=== PATIENT | female | born 1930 | race Native Hawaiian/Other Pacific Islander ===

== ENCOUNTER → 2017-08-02 | Outpatient (CLI) | payer MEDICARE, OTHER ==
[~2017-08-02] MED LIST: (None)50 MG PO; ACET325 PO; ALEN70 PO; AMLO10 PO; ANTACID II SIM PO; ASCO500 PO; ASPI325 PO; ASPI81CH PO; ATEN25 PO; Acidophilus1 EAC2 PO; BISA10S PR; CALCA500CH PO; CHOL10002; CLOP75 PO; CRANBERRY250 MG PO; DOXE25 PO; FERR325 PO; GLIP5 PO; GLUTOSE 1537.5 GM PO; HYDRA25 PO; LEVFLO250 PO; LOPE2C PO; LOSA25 PO; LOSA50 PO; METF500 PO; METF850 PO; MULVIT PO; Macrodantin100 MG PO; Milk Of Ma400 MG/5 M PO; OXYACE5T PO; RAYALDEE30 MCG PO; SIMV40 PO; SULTRIDS PO; Zocor20 MG PO
[2017-08-03 13:20] LABS: Source, Urine Clean Catch
[2017-08-03 13:29] LABS: Appearance, Urine Turbid (Clear); Bilirubin, Urine Neg (Neg); Blood, Urine 3+ (Neg); Color, Urine Yellow (P-Yellow); Glucose Qualitative, Urine Neg (Neg); Ketones, Urine Neg (Neg); Leukocyte Esterase, Urine 3+ (Neg); Nitrite, Urine Neg (Neg); Protein, Urine 4+ (Neg); Urobilinogen, Urine NORM (Normal)
[2017-08-03 13:40] LABS: Squamous Epithelial Cells Few /hpf (Few); White Blood Cells, Urine 50-100 /hpf (0-5)
[2017-08-03 13:41] LABS: Amorphous Light (0-Heavy); Bacteria Many /hpf
== END | disposition home or self-care (01) ==
LOC: LAB 19:15
PROVIDERS: Family Medicine
DX: N39.0 Urinary tract infection, site not specified (principal)
CPT/HCPCS: 81001; 87077; 87086; 87186

== ENCOUNTER → 2018-01-15 | Outpatient (CLI) | payer MEDICARE, OTHER | END | disposition home or self-care (01) | LOC: LAB SHORT 14:51 → PLD 14:51 | DX: B07.9 Viral wart, unspecified (principal) | CPT/HCPCS: 88305 ==

== ENCOUNTER 2018-06-08 20:21 | Emergency (ER) | payer MEDICARE, OTHER ==
[~2018-06-08] VITALS: Ht 165.1 cm; Wt 62.1 kg
[~2018-06-08 20:21] MED LIST changes: -FERR325 PO; +FERSU90EL PO
[2018-06-08] MEDS ORDERED: GLIP5 PO (20:31)
[2018-06-08] MEDS ORDERED: FISH OIL 1,0001 EAC1 PO (20:31)
[2018-06-08] MEDS ORDERED: RAYALDEE30 MCG PO (20:32)
== END 2018-06-08 22:40 | disposition home or self-care (01) ==
LOC: ER 20:21
DX: T83.83XA Hemorrhage due to genitourinary prosthetic devices, implants and grafts, initial encounter (principal); Z43.6 Encounter for attention to other artificial openings of urinary tract; Z88.8 Allergy status to other drugs, medicaments and biological substances; Z79.899 Other long term (current) drug therapy; Z79.82 Long term (current) use of aspirin; I12.9 Hypertensive chronic kidney disease with stage 1 through stage 4 chronic kidney disease, or unspecified chronic kidney disease; E11.22 Type 2 diabetes mellitus with diabetic chronic kidney disease; N18.3 Chronic kidney disease, stage 3 (moderate); Z87.891 Personal history of nicotine dependence
CPT/HCPCS: 99283

== ENCOUNTER 2018-06-10 06:00 | Emergency (ER) | payer MEDICARE, OTHER ==
[~2018-06-10] VITALS: Ht 165.1 cm; Wt 62.1 kg
[~2018-06-10 06:00] MED LIST changes: +FISH OIL 1,0001 EAC1 PO
[2018-06-10 06:43] LABS: BASOPHILS ABSOLUTE AUTO 0.04 K/mm3 (0.00-0.23); BASOPHILS PERCENT AUTO 0 % (0-2); EOSINOPHILS ABSOLUTE AUTO 0.59 K/mm3 (0.00-0.68); EOSINOPHILS PERCENT AUTO 5 % (0-6); Hematocrit 26.7 % (33.0-51.0); Hemoglobin 7.9 g/dL (11.5-16.0); IMMATURE GRAN ABSOLUTE AUTO 0.04 K/mm3 (0.00-0.10); IMMATURE GRAN PERCENT AUTO 0 % (0-1); LYMPHOCYTES ABSOLUTE AUTO 1.12 K/mm3 (0.84-5.20); LYMPHOCYTES PERCENT AUTO 10 % (21-46); MONOCYTES ABSOLUTE AUTO 0.76 K/mm3 (0.16-1.47); MONOCYTES PERCENT AUTO 7 % (4-13); Mean Corpuscular HGB 27.6 pg (26.0-34.0); Mean Corpuscular HGB Conc 29.6 g/dL (31.5-36.5); Mean Corpuscular Volume 93 fL (80-100); Mean Platelet Volume 9.5 fL (9.1-12.4); NEUTROPHILS ABSOLUTE AUTO 8.62 K/mm3 (1.96-9.15); NEUTROPHILS PERCENT AUTO 77 % (41-73); Platelet Count 297 K/mm3 (150-400); RDW Standard Deviation 52.9 fL (35.1-46.3); Red Blood Cell Count 2.86 M/mm3 (3.80-5.20); White Blood Cell Count 11.17 K/mm3 (4.00-11.30)
[2018-06-10 06:48] LABS: Source, Urine Catheter
[2018-06-10 06:52] LABS: Appearance, Urine Hazy (Clear); Bilirubin, Urine Neg (Neg); Blood, Urine 5+ (Neg); Color, Urine Yellow (P-Yellow); Glucose Qualitative, Urine Neg (Neg); Ketones, Urine Neg (Neg); Leukocyte Esterase, Urine 3+ (Neg); Nitrite, Urine Neg (Neg); Protein, Urine 3+ (Neg); Urobilinogen, Urine NORM (Normal); pH, Urine 6.5 (5.0-8.0)
[2018-06-10 07:00] LABS: Bun/Creatinine Ratio 18.8 (12.0-20.0); Creatinine, Blood 2.34 mg/dL (0.40-1.00); Potassium, Blood 4.3 mmol/L (3.5-5.5)
[2018-06-10 07:23] LABS: Bacteria Many /hpf; Squamous Epithelial Cells Rare /hpf (Few); White Blood Cells, Urine 50-100 /hpf (0-5)
[2018-06-10] MEDS ORDERED: CEPH500 PO (08:04)
== END 2018-06-10 08:52 | disposition home or self-care (01) ==
LOC: ER 06:00
PROVIDERS: Emergency Medicine
DX: N39.0 Urinary tract infection, site not specified (principal); R41.82 Altered mental status, unspecified; F10.20 Alcohol dependence, uncomplicated; Z88.8 Allergy status to other drugs, medicaments and biological substances; Z79.899 Other long term (current) drug therapy
CPT/HCPCS: 36415; 71045; 80048; 81001; 85025; 87077; 87086; 87186; 96361; 96365; 99284-25; J0696; J7030

== ENCOUNTER → 2018-06-18 | Outpatient (CLI) | payer MEDICARE, OTHER ==
[~2018-06-18] MED LIST changes: +ACIDOPHILUS LA1 EACH PO; +AMOCLA500 PO; +AZIT500 PO; +Bactrim Ds Tab1 EACH PO; +CEFD300 PO; +CEPH500 PO; +DOC250 PO; +Ferrous Sulfat325 M2 PO; +PANT40 PO; +ZINC220 PO
[2018-06-18 14:55] LABS: Bilirubin, Urine Neg (Neg); Blood, Urine 3+ (Neg); Glucose Qualitative, Urine Neg (Neg); Ketones, Urine Neg (Neg); Leukocyte Esterase, Urine Neg (Neg); Nitrite, Urine Neg (Neg); Protein, Urine 3+ (Neg); Urobilinogen, Urine NORM (Normal)
[2018-06-18 15:13] LABS: Appearance, Urine Clear (Clear); Color, Urine Yellow (P-Yellow)
[2018-06-18 15:16] LABS: Bacteria Not Seen /hpf; Squamous Epithelial Cells Not Seen /hpf (Few)
== END | disposition home or self-care (01) ==
LOC: LAB 14:32 → LAB SHORT 14:32
PROVIDERS: Family Medicine
DX: N39.0 Urinary tract infection, site not specified (principal)
CPT/HCPCS: 81001; 87086

== ENCOUNTER 2018-06-19 12:22 | Emergency (ER) | payer MEDICARE, OTHER ==
[~2018-06-19] VITALS: Ht 165.1 cm; Wt 62.1 kg
[~2018-06-19 12:22] MED LIST changes: -ACIDOPHILUS LA1 EACH PO; -AMOCLA500 PO; -AZIT500 PO; -Bactrim Ds Tab1 EACH PO; -CEFD300 PO; -DOC250 PO; -Ferrous Sulfat325 M2 PO; -PANT40 PO; -ZINC220 PO
[2018-06-19 13:37] LABS: BASOPHILS ABSOLUTE AUTO 0.04 K/mm3 (0.00-0.23); BASOPHILS PERCENT AUTO 0 % (0-2); EOSINOPHILS ABSOLUTE AUTO 0.32 K/mm3 (0.00-0.68); EOSINOPHILS PERCENT AUTO 3 % (0-6); Hemoglobin 6.2 g/dL (11.5-16.0); IMMATURE GRAN ABSOLUTE AUTO 0.05 K/mm3 (0.00-0.10); IMMATURE GRAN PERCENT AUTO 0 % (0-1); LYMPHOCYTES PERCENT AUTO 8 % (21-46); MONOCYTES ABSOLUTE AUTO 1.18 K/mm3 (0.16-1.47); MONOCYTES PERCENT AUTO 10 % (4-13); Mean Corpuscular HGB 27.8 pg (26.0-34.0); Mean Corpuscular HGB Conc 29.5 g/dL (31.5-36.5); Mean Corpuscular Volume 94 fL (80-100); Mean Platelet Volume 9.9 fL (9.1-12.4); NEUTROPHILS ABSOLUTE AUTO 9.47 K/mm3 (1.96-9.15); NEUTROPHILS PERCENT AUTO 79 % (41-73); Platelet Count 290 K/mm3 (150-400); RDW Coefficient Variation 15.5 % (11.7-14.2); RDW Standard Deviation 52.1 fL (35.1-46.3); Red Blood Cell Count 2.23 M/mm3 (3.80-5.20); White Blood Cell Count 11.96 K/mm3 (4.00-11.30)
[2018-06-19 13:54] LABS: Albumin, Blood 2.9 g/dL (3.4-5.0); Albumin/Globulin Ratio 0.8 (0.8-1.8); Bun/Creatinine Ratio 14.4 (12.0-20.0); Calcium, Blood 8.3 mg/dL (8.5-10.1); Creatinine, Blood 1.95 mg/dL (0.40-1.00); Globulin, Blood 3.8 g/dL (2.2-4.0); Potassium, Blood 4.4 mmol/L (3.5-5.5); Total Protein, Blood 6.7 g/dL (6.4-8.2)
== END 2018-06-19 17:32 | disposition short-term general hospital (02) ==
LOC: ER 12:22
PROVIDERS: Emergency Medicine
DX: D62 Acute posthemorrhagic anemia (principal); K92.1 Melena; Z88.8 Allergy status to other drugs, medicaments and biological substances; Z79.899 Other long term (current) drug therapy; Z79.82 Long term (current) use of aspirin; I12.9 Hypertensive chronic kidney disease with stage 1 through stage 4 chronic kidney disease, or unspecified chronic kidney disease; N18.3 Chronic kidney disease, stage 3 (moderate); E11.22 Type 2 diabetes mellitus with diabetic chronic kidney disease; Z87.891 Personal history of nicotine dependence
CPT/HCPCS: 36430; 71046; 80053; 82272; 84484; 85025; 86850; 86900; 86901; 86923; 93005; 93010; 96374; 99284-25; C9113; P9016

== ENCOUNTER 2018-06-25 12:23 | Inpatient (IN) | payer MEDICARE, OTHER ==
[~2018-06-25] VITALS: Ht 165.1 cm; Wt 63.5 kg
[2018-06-25 14:23] LABS: Source, Urine Catheter
[2018-06-25 14:27] LABS: Bilirubin, Urine Neg (Neg); Blood, Urine 1+ (Neg); Glucose Qualitative, Urine Neg (Neg); Ketones, Urine Neg (Neg); Leukocyte Esterase, Urine Neg (Neg); Nitrite, Urine Neg (Neg); Protein, Urine 3+ (Neg); Urobilinogen, Urine NORM (Normal)
[2018-06-25 14:29] LABS: Influenza A Negative (NEGATIVE); Influenza B Negative (NEGATIVE)
[2018-06-25 14:49] LABS: Appearance, Urine Clear (Clear); Color, Urine Yellow (P-Yellow)
[2018-06-25 14:50] LABS: Bacteria Mod /hpf; Red Blood Cells, Urine 0-2 /hpf (0-2); Squamous Epithelial Cells Rare /hpf (Few)
[2018-06-25 14:51] LABS: Granular Casts Rare /lpf (0); Yeast/Fungi Urine Rare /hpf
[2018-06-25] MEDS ORDERED: CEFD300 PO (15:02)
[2018-06-25 16:34] LABS: BASOPHILS ABSOLUTE AUTO 0.03 K/mm3 (0.00-0.23); BASOPHILS PERCENT AUTO 0 % (0-2); EOSINOPHILS ABSOLUTE AUTO 0.08 K/mm3 (0.00-0.68); EOSINOPHILS PERCENT AUTO 0 % (0-6); IMMATURE GRAN ABSOLUTE AUTO 0.13 K/mm3 (0.00-0.10); IMMATURE GRAN PERCENT AUTO 1 % (0-1); LYMPHOCYTES ABSOLUTE AUTO 1.06 K/mm3 (0.84-5.20); LYMPHOCYTES PERCENT AUTO 5 % (21-46); MONOCYTES ABSOLUTE AUTO 0.84 K/mm3 (0.16-1.47); MONOCYTES PERCENT AUTO 4 % (4-13); Mean Corpuscular HGB 27.4 pg (26.0-34.0); Mean Corpuscular HGB Conc 30.3 g/dL (31.5-36.5); Mean Corpuscular Volume 90 fL (80-100); Mean Platelet Volume 9.5 fL (9.1-12.4); NEUTROPHILS ABSOLUTE AUTO 17.66 K/mm3 (1.96-9.15); NEUTROPHILS PERCENT AUTO 89 % (41-73); Platelet Count 337 K/mm3 (150-400); RDW Coefficient Variation 15.3 % (11.7-14.2); RDW Standard Deviation 50.6 fL (35.1-46.3); Red Blood Cell Count 3.65 M/mm3 (3.80-5.20)
[2018-06-25 16:40] LABS: Calcium, Ionized (POC) 1.15 mmol/L (1.10-1.46); Chloride (POC) 106 mmol/L (98-108); Glucose (ISTAT POC) 213 mg/dL (70-99); Hemoglobin (POC) 10.2 g/dL (12.0-16.0); Potassium (POC) 4.5 mmol/L (3.5-5.5); Sodium (POC) 139 mmol/L (135-148); Total CO2 (POC) 19 mmol/L (21-32)
[2018-06-25 17:35] LABS: Albumin, Blood 2.8 g/dL (3.4-5.0); Albumin/Globulin Ratio 0.6 (0.8-1.8); Bilirubin, Total 0.6 mg/dL (0.1-1.0); Bun/Creatinine Ratio 12.9 (12.0-20.0); Creatinine, Blood 2.17 mg/dL (0.40-1.00); Globulin, Blood 4.8 g/dL (2.2-4.0); Potassium, Blood 3.8 mmol/L (3.5-5.5); Total Protein, Blood 7.6 g/dL (6.4-8.2)
[2018-06-25 19:32] LABS: Glucose, Blood 119 mg/dL (70-99)
[2018-06-26] MEDS ORDERED: DOC250 PO (03:29)
[2018-06-26] MEDS ORDERED: PANT40 PO (03:30)
[2018-06-26] MEDS ORDERED: ZINC220 PO (03:31)
[2018-06-26] MEDS ORDERED: RAYALDEE30 MCG PO (03:34)
[2018-06-26] MEDS ORDERED: Bactrim Ds Tab1 EACH PO (03:35)
--- NOTE | 2018-06-26 04:50 | NUR ---
SHIFT SUMMARY: PT IS ALERT AND ORIENTED. PT IS CALM AND COOPERATIVE WITH CARE. PT CALLS APPROPRIATELY. PT'S DAUGHTER AT THE BEDSIDE EARLY IN THE SHIFT. PT HAD FEVER, GAVE PRN TYLENOL. PT REPORTED NAUSEA, GAVE PRN ZOFRAN. D5 1/2 NS RUNNING @ 50 ML/HR FOR THE LAST 6 HOURS, BLOOD GLUCOSE DROPPED SLIGHTLY BUT STILL WNL. PT DENIES PAIN AND SOB. PT IS A ONE PERSON ASSIST FOR TRANSFERS AND AMBULATION. BED IN LOW POSITON, CALL LIGHT WITHIN REACH.
[2018-06-26 05:22] LABS: Hematocrit 28.3 % (33.0-51.0); Hemoglobin 8.5 g/dL (11.5-16.0); Mean Corpuscular HGB 27.4 pg (26.0-34.0); Mean Corpuscular Volume 91 fL (80-100); Mean Platelet Volume 9.4 fL (9.1-12.4); Platelet Count 290 K/mm3 (150-400); RDW Coefficient Variation 15.3 % (11.7-14.2); RDW Standard Deviation 51.4 fL (35.1-46.3); White Blood Cell Count 18.22 K/mm3 (4.00-11.30)
[2018-06-26 05:45] LABS: Bun/Creatinine Ratio 11.8 (12.0-20.0); Calcium, Blood 7.2 mg/dL (8.5-10.1); Creatinine, Blood 2.45 mg/dL (0.40-1.00); Potassium, Blood 4.5 mmol/L (3.5-5.5)
--- NOTE | 2018-06-26 14:32 | NUR ---
Visited with patient, reviewed POLST and advance directive. She has both scanned into [employer]. They reflect her current wishes at this time.
--- NOTE | 2018-06-26 18:18 | NUR ---
SHIFT SUMMARY PT HAS HAD NO COMPLAINTS THIS SHIFT. PT'S BLOOD SUGARS HAVE BEEN WNL WITH D5 1/2 NORMAL SALINE INFUSING CONTINUOUSLY. PT STILL DOESN'T HAVE MUCH OF AN APPTITE. SMALL SOFT BOWEL MOVEMENT THIS EVENING. NO ACUTE CHANGES THIS SHIFT. PT UP TO CHAIR FOR DINNER. WILL CONTINUE TO MONITOR AND REPORT TO ONCOMING RN. CALL LIGHT IN REACH.
[2018-06-27 05:00] LABS: BASOPHILS ABSOLUTE AUTO 0.02 K/mm3 (0.00-0.23); BASOPHILS PERCENT AUTO 0 % (0-2); EOSINOPHILS ABSOLUTE AUTO 1.26 K/mm3 (0.00-0.68); EOSINOPHILS PERCENT AUTO 11 % (0-6); Hematocrit 25.4 % (33.0-51.0); Hemoglobin 7.6 g/dL (11.5-16.0); IMMATURE GRAN ABSOLUTE AUTO 0.04 K/mm3 (0.00-0.10); IMMATURE GRAN PERCENT AUTO 0 % (0-1); LYMPHOCYTES ABSOLUTE AUTO 0.81 K/mm3 (0.84-5.20); LYMPHOCYTES PERCENT AUTO 7 % (21-46); MONOCYTES ABSOLUTE AUTO 0.79 K/mm3 (0.16-1.47); MONOCYTES PERCENT AUTO 7 % (4-13); Mean Corpuscular HGB 27.1 pg (26.0-34.0); Mean Corpuscular HGB Conc 29.9 g/dL (31.5-36.5); Mean Corpuscular Volume 91 fL (80-100); Mean Platelet Volume 9.7 fL (9.1-12.4); NEUTROPHILS ABSOLUTE AUTO 8.71 K/mm3 (1.96-9.15); NEUTROPHILS PERCENT AUTO 75 % (41-73); Platelet Count 253 K/mm3 (150-400); RDW Coefficient Variation 15.2 % (11.7-14.2); RDW Standard Deviation 50.6 fL (35.1-46.3); White Blood Cell Count 11.63 K/mm3 (4.00-11.30)
--- NOTE | 2018-06-27 05:22 | NUR ---
SHIFT SUMMARY: PT IS ALERT AND ORIENTED. PT IS CALM AND COOPERATIVE WITH CARE. PT CALLS APPROPRIATELY. PT IS A STANDBY ASSIST WITH THE FWW. PT'S BLOOD SUGARS REMAINED STABLE THROUGHOUT THE SHIFT, FLUIDS RUNNING AT 100 ML/HR. PT SLEPT MUCH OF THE NIGHT WHEN NOT DISTURBED. PT DENIES PAIN, NAUSEA, VOMITING, AND SOB. NO ACUTE CHANGES OR COMPLICATIONS THIS SHIFT. BED IN LOW POSITION, CALL LIGHT SAMANTHA THOMPSON.
[2018-06-27 05:30] LABS: Anion Gap 10 mmol/L (6-16); Blood Urea Nitrogen 30 mg/dL (8-24); CO2, Blood 16 mmol/L (21-32); Calcium, Blood 6.8 mg/dL (8.5-10.1); Chloride, Blood 113 mmol/L (98-108); Glomerular Filtration Rate 21 (60-); Glucose, Blood 138 mg/dL (70-99); Potassium, Blood 4.1 mmol/L (3.5-5.5); Sodium, Blood 139 mmol/L (136-145); Vancomycin, Random 10.8 ug/mL
--- NOTE | 2018-06-27 07:25 | NUR ---
ASSUMED CARE OF PT- BEDSIDE REPORT COMPLETED WITH NIGHT ANJEL LOWRY. PT ALERT AND ORIENTED AND PARTICIPATED IN BEDSIDE REPORT. PER REPORT PT FROM [facility], ADMITTED FOR HYPOGLYCEMIA. MORNING LABS SHOW HGB DOWN TO 7.6, PER REPORT PT HAS BEEN TREATED IN THE PAST WITH BLOOD TRANSFUSIONS FOR ANEMIA. PT BG IS BEING CHECKED Q4 HOURS AT THIS TIME TO ENSURE SAFE RANGE. PT HAS D5 HALF NS RUNNING AT 100ML PER HOUR. POSIBLE PNEUMONIA PER REPORT, PT ON RA AT THIS TIME. PT FAMILY ARRIVED AFTER REPORT.
--- NOTE | 2018-06-27 07:39 | NUR ---
CALLED PHARMACY- FELICITY VERIFIED IV VANCO IS COMPATIBLE TO PB WITH D5 1/2 NS
--- NOTE | 2018-06-27 09:47 | NUR ---
SPOKE TO DR SAM- PLAN IS TO ENSURE PT BG IS STABLE WITHOUT IVF WILL CTM Q4 AT THIS TIME.
[2018-06-27] MEDS ORDERED: AZIT500 PO (14:58)
[2018-06-27] MEDS ORDERED: AMOCLA500 PO (14:59)
[2018-06-27] MEDS ORDERED: ACIDOPHILUS LA1 EACH PO (15:01)
--- NOTE | 2018-06-27 15:45 | NUR ---
DISCHARGE NOTE- PT DISCHARGED BACK TO [facility], MEDS FAXED TO THE FACILITY PER PT REQUEST. PT WAS GIVEN VERBAL AND WRITTEN DISCHARGE INSTRUCTIONS AND ACKNOWLEDGED UNDERSTANDING OF THEM.PG WAS DC'D AT THE TIME OF DISCHARGE, PT TAKEN BY W/C TRANSPORT BACK TO [facility], SHE CONTACTED HER FAMILY.
== END 2018-06-27 15:43 | disposition home or self-care (01) | DRG 637 ==
LOC: ER 12:23 → MEDS 12:24 → ER 18:17 → MEDS 18:36 → ENPENDDIS 06-27 15:02 → MEDS 06-27 15:09
PROVIDERS: Emergency Medicine; Internal Medicine; Nurse Practitioner Acute Care; ADMIT Internal Medicine
DX: E11.649 Type 2 diabetes mellitus with hypoglycemia without coma (principal); G93.41 Metabolic encephalopathy; J18.9 Pneumonia, unspecified organism; T83.518A Infection and inflammatory reaction due to other urinary catheter, initial encounter; E11.22 Type 2 diabetes mellitus with diabetic chronic kidney disease; Z85.51 Personal history of malignant neoplasm of bladder; M85.80 Other specified disorders of bone density and structure, unspecified site; I12.9 Hypertensive chronic kidney disease with stage 1 through stage 4 chronic kidney disease, or unspecified chronic kidney disease; Z79.82 Long term (current) use of aspirin; N25.81 Secondary hyperparathyroidism of renal origin; N18.4 Chronic kidney disease, stage 4 (severe); M81.0 Age-related osteoporosis without current pathological fracture; Z95.0 Presence of cardiac pacemaker; Z86.73 Personal history of transient ischemic attack (TIA), and cerebral infarction without residual deficits; E78.5 Hyperlipidemia, unspecified; Z87.891 Personal history of nicotine dependence; Z79.84 Long term (current) use of oral hypoglycemic drugs
CPT/HCPCS: 36415; 71046; 80047; 80048; 80053; 80202; 81001; 82947; 83036; 83525; 83527; 84145; 84681; 85014; 85025; 85027; 85730; 87077; 87086; 87186; 87449; 87804; 96361; 96365; 96366; 96367; 96375; 97116; 97162; 97530; 99284-25; C1751; G0378; J0696; J2405; J3370; J7042; J7050

== ENCOUNTER 2018-07-08 00:04 | Observation (INO) | payer MEDICARE, OTHER ==
[~2018-07-08] VITALS: Ht 152.4 cm; Wt 57.7 kg
[~2018-07-08 00:04] MED LIST changes: +ACIDOPHILUS LA1 EACH PO; +AMOCLA500 PO; +AZIT500 PO; +Bactrim Ds Tab1 EACH PO; +CEFD300 PO; +DOC250 PO; +PANT40 PO; +ZINC220 PO
[2018-07-08 00:41] LABS: BASOPHILS ABSOLUTE AUTO 0.07 K/mm3 (0.00-0.23); BASOPHILS PERCENT AUTO 0 % (0-2); EOSINOPHILS ABSOLUTE AUTO 0.31 K/mm3 (0.00-0.68); EOSINOPHILS PERCENT AUTO 2 % (0-6); Hematocrit 25.2 % (33.0-51.0); Hemoglobin 7.2 g/dL (11.5-16.0); IMMATURE GRAN ABSOLUTE AUTO 0.15 K/mm3 (0.00-0.10); IMMATURE GRAN PERCENT AUTO 1 % (0-1); LYMPHOCYTES PERCENT AUTO 9 % (21-46); MONOCYTES ABSOLUTE AUTO 0.67 K/mm3 (0.16-1.47); MONOCYTES PERCENT AUTO 4 % (4-13); Mean Corpuscular HGB 27.1 pg (26.0-34.0); Mean Corpuscular HGB Conc 28.6 g/dL (31.5-36.5); Mean Platelet Volume 9.6 fL (9.1-12.4); NEUTROPHILS ABSOLUTE AUTO 13.69 K/mm3 (1.96-9.15); NEUTROPHILS PERCENT AUTO 84 % (41-73); NRBC Auto 0.6 /100 WBC (0.0-0.2); Platelet Count 382 K/mm3 (150-400); RDW Coefficient Variation 17.8 % (11.7-14.2); Red Blood Cell Count 2.66 M/mm3 (3.80-5.20); White Blood Cell Count 16.39 K/mm3 (4.00-11.30)
[2018-07-08 00:52] LABS: Mean Corpuscular Volume 95 fL (80-100)
[2018-07-08 01:08] LABS: Source, Urine Clean Catch
[2018-07-08 01:20] LABS: Bilirubin, Urine Neg (Neg); Blood, Urine 2+ (Neg); Glucose Qualitative, Urine Neg (Neg); Ketones, Urine Neg (Neg); Leukocyte Esterase, Urine Neg (Neg); Nitrite, Urine Neg (Neg); Protein, Urine 3+ (Neg); Urobilinogen, Urine NORM (Normal); pH, Urine 6.5 (5.0-8.0)
[2018-07-08 01:20] LABS: Albumin, Blood 3.1 g/dL (3.4-5.0); Albumin/Globulin Ratio 0.7 (0.8-1.8); Bilirubin, Total 0.7 mg/dL (0.1-1.0); Bun/Creatinine Ratio 12.6 (12.0-20.0); Calcium, Blood 9.2 mg/dL (8.5-10.1); Creatinine, Blood 1.98 mg/dL (0.40-1.00); Globulin, Blood 4.3 g/dL (2.2-4.0); Potassium, Blood 4.3 mmol/L (3.5-5.5); Total Protein, Blood 7.4 g/dL (6.4-8.2)
[2018-07-08 01:28] LABS: Appearance, Urine Clear (Clear); Color, Urine Yellow (P-Yellow)
[2018-07-08 01:31] LABS: Bacteria Few /hpf; Red Blood Cells, Urine 0-2 /hpf (0-2); Squamous Epithelial Cells Rare /hpf (Few)
[2018-07-08 04:49] LABS: Percent Saturation 12.5 % (15.0-50.0)
[2018-07-08 04:52] LABS: IMMATURE RETIC FRACTION 43.8 % (2.3-16.0); RETIC HGB EQUIVALENT 25.5 pg (28.20-36.60); RETICULOCYTE ABSOLUTE 0.1981 M/mm3 (0.0200-0.1100); RETICULOCYTE COUNT PERCENT 7.42 % (0.50-2.50)
[2018-07-08 05:34] LABS: BASOPHILS ABSOLUTE AUTO 0.09 K/mm3 (0.00-0.23); BASOPHILS PERCENT AUTO 1 % (0-2); EOSINOPHILS ABSOLUTE AUTO 0.13 K/mm3 (0.00-0.68); EOSINOPHILS PERCENT AUTO 1 % (0-6); Hematocrit 23.7 % (33.0-51.0); Hemoglobin 6.8 g/dL (11.5-16.0); IMMATURE GRAN ABSOLUTE AUTO 0.14 K/mm3 (0.00-0.10); IMMATURE GRAN PERCENT AUTO 1 % (0-1); LYMPHOCYTES ABSOLUTE AUTO 1.02 K/mm3 (0.84-5.20); LYMPHOCYTES PERCENT AUTO 6 % (21-46); MONOCYTES ABSOLUTE AUTO 0.47 K/mm3 (0.16-1.47); MONOCYTES PERCENT AUTO 3 % (4-13); Mean Corpuscular HGB 26.5 pg (26.0-34.0); Mean Corpuscular HGB Conc 28.7 g/dL (31.5-36.5); Mean Corpuscular Volume 92 fL (80-100); Mean Platelet Volume 9.9 fL (9.1-12.4); NEUTROPHILS ABSOLUTE AUTO 15.26 K/mm3 (1.96-9.15); NEUTROPHILS PERCENT AUTO 89 % (41-73); NRBC ABSOLUTE 0.09 K/mm3 (0.00-0.02); NRBC Auto 0.5 /100 WBC (0.0-0.2); Platelet Count 374 K/mm3 (150-400); RDW Coefficient Variation 17.8 % (11.7-14.2); RDW Standard Deviation 57.1 fL (35.1-46.3); Red Blood Cell Count 2.57 M/mm3 (3.80-5.20); White Blood Cell Count 17.11 K/mm3 (4.00-11.30)
--- NOTE | 2018-07-08 07:59 | NUR ---
NOC SHIFT SUMMARY THIS PATIENT WAS ADMITTED DURING THE NIGHT FOR OBS. SHE IS PLEASENT AND COOPERATIVE WITH CARE. SHE WILL ANSWERE QUESTIONS BUT DOES NOT OPEN HER EYES UNLESS ASKED. ISOLATION PRECAUTIONS DUE TO CONCERNS OF CDIFF. ONE UNIT OF PRBC'S WAS STARTED AND PT HAS TOERATED PROCEEDURE WELL. LUNGS CLEAR THROUGOUT. REPORT GIVEN TO ONCOMING NURSE.
--- NOTE | 2018-07-08 17:50 | NUR ---
SHIFT SUMMARY PT RECEIVED 2 UNITS OF BLOOD TODAY. TOLERATED WITH NO PROBLEM. VSS. 1 PERSON ASSIST USING FWW. TOOK A SHOWER TODAY AND TOLERATED WITH NO PROBLEM. REPORTS SHE HASN'T HAD AN APPETITE IN SEVERAL WEEKS.
[2018-07-08 18:42] LABS: Adenovirus F 40/41 Not Detected (NOT DETECT); Astrovirus Not Detected (NOT DETECT); Campylobacter Sp Not Detected (NOT DETECT); Cryptosporidium Not Detected (NOT DETECT); Cyclospora Cayetanensis Not Detected (NOT DETECT); E. Coli O157 Not Detected (NOT DETECT); Entamoeba Histolytica Not Detected (NOT DETECT); Enteroaggregative E. coli-EAEC Not Detected (NOT DETECT); Enteropathogenic E. coli-EPEC Not Detected (NOT DETECT); Enterotoxigenic E. coli-ETEC Not Detected (NOT DETECT); Giardia Lamblia Not Detected (NOT DETECT); Norovirus GI/GII Not Detected (NOT DETECT); Plesiomonas Shigelloides Not Detected (NOT DETECT); Rotavirus A Not Detected (NOT DETECT); Salmonella Sp Not Detected (NOT DETECT); Sapovirus Not Detected (NOT DETECT); Shiga Toxin-prod E. coli-STEC Not Detected (NOT DETECT); Shigella/Enteroin E. coli-EIEC Not Detected (NOT DETECT); Vibrio Cholerae Not Detected (NOT DETECT); Vibrio Sp Not Detected (NOT DETECT); Yersinia Enterocolitica Not Detected (NOT DETECT)
--- NOTE | 2018-07-08 19:29 | NUR ---
DR SHIELDS IN TO SEE PT AT START OF SHIFT. PER DR SHIELDS, "PT WILL HAVE UPPER ENDOSCOPY TOMORROW". WILL MAKE PT NPO AFTER MIDNIGHT IN PREP FOR PROCEDURE.
[2018-07-08 19:38] LABS: Hematocrit 32.8 % (33.0-51.0); Hemoglobin 10.2 g/dL (11.5-16.0)
--- NOTE | 2018-07-09 04:21 | NUR ---
NOC SHIFT SUMMARY THIS PT APPEARS IMPROVED SINCE LAST NIGHT WHEN SHE WAS ADMITTED. SHE IS AAOX4 RESP ARE EVEN AND UNLABORED. SHE NOW OPENS HER EYES AND LOOKS AT YOU WHEN SPEAKING. HER DAUGHTER WAS IN EARLIER THIS EVENING VISITING WITH HER. SHE IS MOVING MUCH MORE EASILY IN BED AND ROLLED OVER ON HER OWN WHEN ASKED DURING BREATH SOUND ASSESMENT. SHE HAS BEEN SLEEPING RESTFULLY THIS NIGHT. WILL CONTINUE TO MONITOR.
[2018-07-09 04:56] LABS: BASOPHILS ABSOLUTE AUTO 0.06 K/mm3 (0.00-0.23); BASOPHILS PERCENT AUTO 0 % (0-2); EOSINOPHILS ABSOLUTE AUTO 0.28 K/mm3 (0.00-0.68); EOSINOPHILS PERCENT AUTO 2 % (0-6); Hematocrit 33.2 % (33.0-51.0); Hemoglobin 10.3 g/dL (11.5-16.0); IMMATURE GRAN ABSOLUTE AUTO 0.09 K/mm3 (0.00-0.10); IMMATURE GRAN PERCENT AUTO 1 % (0-1); LYMPHOCYTES ABSOLUTE AUTO 1.11 K/mm3 (0.84-5.20); LYMPHOCYTES PERCENT AUTO 7 % (21-46); MONOCYTES ABSOLUTE AUTO 0.87 K/mm3 (0.16-1.47); MONOCYTES PERCENT AUTO 6 % (4-13); Mean Corpuscular HGB 26.9 pg (26.0-34.0); Mean Platelet Volume 9.9 fL (9.1-12.4); NEUTROPHILS ABSOLUTE AUTO 13.55 K/mm3 (1.96-9.15); NEUTROPHILS PERCENT AUTO 85 % (41-73); NRBC ABSOLUTE 0.05 K/mm3 (0.00-0.02); NRBC Auto 0.3 /100 WBC (0.0-0.2); Platelet Count 347 K/mm3 (150-400); RDW Standard Deviation 51.9 fL (35.1-46.3); Red Blood Cell Count 3.83 M/mm3 (3.80-5.20); White Blood Cell Count 15.96 K/mm3 (4.00-11.30)
[2018-07-09 04:57] LABS: Mean Corpuscular Volume 87 fL (80-100)
[2018-07-09 05:20] LABS: Bun/Creatinine Ratio 13.5 (12.0-20.0); Creatinine, Blood 1.55 mg/dL (0.40-1.00); Potassium, Blood 4.5 mmol/L (3.5-5.5)
--- NOTE | 2018-07-09 10:02 | NUR ---
FIELD START PT REFUSED STANDARD FIELD START IV CHANGE. PT STATED SHE WANTS TO KEEP IT UNTIL IT NO LONGER WORKS. DAY SURGERY NOTIFIED & STATED IT WOULD BE FINE LONG THE IV FLUSHES.
--- NOTE | 2018-07-09 15:09 | NUR ---
07/09/18 1509 Willis Syed PATIENT DETERMINED TO BE ASA APPROPRIATE FOR PROPOFOL SEDATION PRIOR TO START OF PROCEDURE BY . 3-LEAD EKG REVIEWED WITH PHYSICIAN PRIOR TO START OF PROCEDURE.PATIENT CONFIRMS NPO STATUS AND AGREES WITH SCHEDULED PROCEDURE.History, Chart, Medications and Allergies reviewed before start of procedure.MONITOR INTACT WITH CONTINUOUS PULSE OXIMETRY AND INTERMITTENT BP.O2 VIA N/C INTACT THROUGHOUT SEDATION/PROCEDURE.Bite Block Placed
--- NOTE | 2018-07-09 16:57 | NUR ---
SHIFT SUMMARY PT RECIEVED UPPER ENDO THIS AFTERNOON. NOTHING FOUND IN PROCEDURE. PT CONTINUES TO HAVE DARK, LOOSE STOOL. NO OTHER CHANGES IN ASSESSMENT AT THIS TIME. VSS. POST PROCEDURE VITALS CONTINUE TO BE TAKEN. WILL CONTINUE TO MONITOR UNTIL TURNOVER IS COMPLETE.
[2018-07-09 17:31] LABS: Hematocrit 35.1 % (33.0-51.0); Hemoglobin 10.7 g/dL (11.5-16.0)
--- NOTE | 2018-07-09 18:56 | NUR ---
Mrs. Harris was pleasantly dismissive. She is awaiting a proceedure to determine POC. No concerns presented. Prayer offered at conclusion of visit. I will remain available.
[2018-07-10 04:55] LABS: BASOPHILS ABSOLUTE AUTO 0.07 K/mm3 (0.00-0.23); BASOPHILS PERCENT AUTO 1 % (0-2); EOSINOPHILS ABSOLUTE AUTO 0.39 K/mm3 (0.00-0.68); EOSINOPHILS PERCENT AUTO 4 % (0-6); Hematocrit 33.3 % (33.0-51.0); Hemoglobin 10.2 g/dL (11.5-16.0); IMMATURE GRAN ABSOLUTE AUTO 0.02 K/mm3 (0.00-0.10); IMMATURE GRAN PERCENT AUTO 0 % (0-1); LYMPHOCYTES ABSOLUTE AUTO 0.88 K/mm3 (0.84-5.20); LYMPHOCYTES PERCENT AUTO 8 % (21-46); MONOCYTES PERCENT AUTO 8 % (4-13); Mean Corpuscular HGB Conc 30.6 g/dL (31.5-36.5); Mean Corpuscular Volume 88 fL (80-100); Mean Platelet Volume 9.5 fL (9.1-12.4); NEUTROPHILS ABSOLUTE AUTO 8.52 K/mm3 (1.96-9.15); NEUTROPHILS PERCENT AUTO 80 % (41-73); Platelet Count 309 K/mm3 (150-400); RDW Coefficient Variation 17.9 % (11.7-14.2); Red Blood Cell Count 3.78 M/mm3 (3.80-5.20); White Blood Cell Count 10.68 K/mm3 (4.00-11.30)
--- NOTE | 2018-07-10 05:04 | NUR ---
SHIFT SUMMARY PT SLEPT WELL DURING THE NIGHT, UP TO BATHROOM X1. PT REQUESTING A MEPILEX BE PLACED ON RIGHT BUTTCHEEK DUE TO A SORE SHE BELIEVES IS FROM THE PULL UPS. SMALL MEPILEX PLACED OVER AREA. NO ACUTE CHANGES NOTED, WILL CONTINUE TO MONITOR.
[2018-07-10 05:12] LABS: Albumin, Blood 2.7 g/dL (3.4-5.0); Anion Gap 8 mmol/L (6-16); Blood Urea Nitrogen 21 mg/dL (8-24); Bun/Creatinine Ratio 12.8 (12.0-20.0); CO2, Blood 22 mmol/L (21-32); Calcium, Blood 8.7 mg/dL (8.5-10.1); Chloride, Blood 114 mmol/L (98-108); Creatinine, Blood 1.64 mg/dL (0.40-1.00); Glomerular Filtration Rate 31 (60-); Glucose, Blood 121 mg/dL (70-99); Potassium, Blood 4.4 mmol/L (3.5-5.5); Sodium, Blood 144 mmol/L (136-145)
--- NOTE | 2018-07-10 16:21 | NUR ---
Pt is up and ambulating in room independently. She is alert, oriented X4 and pleasant. She reports that staff was just present in the room and states that she is able to go. No discharge has been placed as of yet. Pt is gathering her things to go home, she denies pain, anxiety, shortness of breath. Pt does have an advanced directive and a POLST on file in [employer]. She does not wish to make changes and finds everything appropriate. Will remain avialable.
[2018-07-10] MEDS ORDERED: Ferrous Sulfat325 M2 PO (17:17)
--- NOTE | 2018-07-10 17:40 | NUR ---
DISCHARGE SUMMARY PT DISCHARGED TO [facility]. PT TAKEN THERE BY DAUGHTER, BORIS. PT LEFT ROOM VIA WHEELCHAIR WITH SUPERVISOR SIGN SHOP ESCORT AT 1740. PT EDUCATED ON GI BLEED, MEDICATIONS AND TO FOLLOW UP WITH PCP AND DR SHIELDS. IV DC'D AND BELONGINGS RETURNED. PT DID NOT GET HER PM DOSE OF PROTONIX DUE TO WANTING IV OUT, EDUCATED ON THE IMPORTANCE OF TAKING PROTONIX. PT EDUCATED ON MONITORING OF BLOOD IN STOOL.
--- NOTE | 2018-07-15 11:05 | NUR ---
LATE ENTRY-ORDER CORRECTION FULLL LIQUID ORDER REORDERED UNDER CORRECT PHYSICIAN FOR 07/09/18.
== END 2018-07-10 17:43 | disposition home or self-care (01) ==
LOC: ER 00:04 → MEDS 00:05 → ER 02:22 → MEDS 02:22 → ENPENDDIS 07-10 16:03 → MEDS 07-10 17:43
PROVIDERS: Emergency Medicine; Family Medicine; Internal Medicine; Internal Medicine Gastroenterology; ADMIT Hospitalist
PROC: 0DJ08ZZ Inspection of Upper Intestinal Tract, Via Natural or Artificial Opening Endoscopic (ICD-10-PCS; principal; 2018-07-09 14:30)
DX: K92.1 Melena (principal); D50.0 Iron deficiency anemia secondary to blood loss (chronic); E11.22 Type 2 diabetes mellitus with diabetic chronic kidney disease; I12.9 Hypertensive chronic kidney disease with stage 1 through stage 4 chronic kidney disease, or unspecified chronic kidney disease; N18.4 Chronic kidney disease, stage 4 (severe); M81.0 Age-related osteoporosis without current pathological fracture; E78.5 Hyperlipidemia, unspecified; Z95.0 Presence of cardiac pacemaker; Z86.73 Personal history of transient ischemic attack (TIA), and cerebral infarction without residual deficits; Z85.51 Personal history of malignant neoplasm of bladder; Z90.6 Acquired absence of other parts of urinary tract; Z90.710 Acquired absence of both cervix and uterus; Z87.891 Personal history of nicotine dependence; Z88.8 Allergy status to other drugs, medicaments and biological substances; Z79.899 Other long term (current) drug therapy
CPT/HCPCS: 36415; 36430; 71046; 80048; 80053; 80069; 81001; 82728; 82947; 83540; 83550; 85014; 85018; 85025; 85045; 86850; 86900; 86901; 86923; 87086; 87507; 96374; 96376; 99285-25; C9113; G0378; J7120; P9016

== ENCOUNTER 2018-08-31 20:29 | Inpatient (IN) | payer MEDICARE, OTHER ==
[~2018-08-31] VITALS: Ht 165.1 cm; Wt 59.8 kg
[~2018-08-31 20:29] MED LIST changes: +Aspir 8181 MG PO; +BIOTIN5 MG PO; +ELIQUIS2.5 MG PO; +ELIQUIS5 MG PO; +Ferrous Sulfat325 M2 PO; +GABA100 PO
[2018-08-31 21:09] LABS: BASOPHILS ABSOLUTE AUTO 0.07 K/mm3 (0.00-0.23); BASOPHILS PERCENT AUTO 0 % (0-2); EOSINOPHILS ABSOLUTE AUTO 0.38 K/mm3 (0.00-0.68); EOSINOPHILS PERCENT AUTO 2 % (0-6); Hematocrit 21.1 % (33.0-51.0); IMMATURE GRAN ABSOLUTE AUTO 0.11 K/mm3 (0.00-0.10); IMMATURE GRAN PERCENT AUTO 1 % (0-1); LYMPHOCYTES ABSOLUTE AUTO 1.46 K/mm3 (0.84-5.20); LYMPHOCYTES PERCENT AUTO 8 % (21-46); MONOCYTES ABSOLUTE AUTO 1.02 K/mm3 (0.16-1.47); MONOCYTES PERCENT AUTO 5 % (4-13); Mean Corpuscular HGB 25.3 pg (26.0-34.0); Mean Corpuscular HGB Conc 28.4 g/dL (31.5-36.5); Mean Corpuscular Volume 89 fL (80-100); Mean Platelet Volume 9.8 fL (9.1-12.4); NEUTROPHILS ABSOLUTE AUTO 15.94 K/mm3 (1.96-9.15); NEUTROPHILS PERCENT AUTO 84 % (41-73); Platelet Count 441 K/mm3 (150-400); RDW Coefficient Variation 17.5 % (11.7-14.2); RDW Standard Deviation 55.8 fL (35.1-46.3); Red Blood Cell Count 2.37 M/mm3 (3.80-5.20); White Blood Cell Count 18.98 K/mm3 (4.00-11.30)
[2018-08-31 21:23] LABS: Alanine Aminotransfer (ALT/SGP 10 U/L (12-78); Albumin/Globulin Ratio 0.5 (0.8-1.8); Alk Phos 58 U/L (50-136); Anion Gap 9 mmol/L (6-16); Aspartate Aminotrans (AST/SGOT 14 U/L (12-37); Bilirubin, Total 0.3 mg/dL (0.1-1.0); Blood Urea Nitrogen 46 mg/dL (8-24); Bun/Creatinine Ratio 31.7 (12.0-20.0); CO2, Blood 20 mmol/L (21-32); Calcium, Blood 8.3 mg/dL (8.5-10.1); Chloride, Blood 111 mmol/L (98-108); Creatinine, Blood 1.45 mg/dL (0.40-1.00); Globulin, Blood 4.1 g/dL (2.2-4.0); Glomerular Filtration Rate 36 (60-); Glucose, Blood 184 mg/dL (70-99); Potassium, Blood 4.5 mmol/L (3.5-5.5); Sodium, Blood 140 mmol/L (136-145); Total Protein, Blood 6.1 g/dL (6.4-8.2); Troponin I <0.015 ng/mL (0.000-0.040)
[2018-08-31 22:41] LABS: International Normalized Ratio 1.15
[2018-09-01 08:08] LABS: Hematocrit 28.5 % (33.0-51.0); Hemoglobin 9.1 g/dL (11.5-16.0); Mean Corpuscular HGB 28.2 pg (26.0-34.0); Mean Corpuscular HGB Conc 31.9 g/dL (31.5-36.5); Mean Corpuscular Volume 88 fL (80-100); Mean Platelet Volume 9.8 fL (9.1-12.4); Platelet Count 331 K/mm3 (150-400); RDW Coefficient Variation 15.6 % (11.7-14.2); RDW Standard Deviation 49.8 fL (35.1-46.3); Red Blood Cell Count 3.23 M/mm3 (3.80-5.20); White Blood Cell Count 15.46 K/mm3 (4.00-11.30)
[2018-09-01 08:20] LABS: Hematocrit 28.2 % (33.0-51.0)
[2018-09-01 08:59] LABS: Albumin, Blood 1.7 g/dL (3.4-5.0); Albumin/Globulin Ratio 0.4 (0.8-1.8); Bun/Creatinine Ratio 34.5 (12.0-20.0); Calcium, Blood 8.1 mg/dL (8.5-10.1); Creatinine, Blood 1.39 mg/dL (0.40-1.00); Globulin, Blood 3.8 g/dL (2.2-4.0); Potassium, Blood 4.4 mmol/L (3.5-5.5); Total Protein, Blood 5.5 g/dL (6.4-8.2)
[2018-09-01 10:39] LABS: Source, Urine Catheter
[2018-09-01 10:44] LABS: Appearance, Urine Hazy (Clear); Bilirubin, Urine Neg (Neg); Blood, Urine 3+ (Neg); Color, Urine Yellow (P-Yellow); Glucose Qualitative, Urine Neg (Neg); Ketones, Urine Neg (Neg); Leukocyte Esterase, Urine 2+ (Neg); Nitrite, Urine Neg (Neg); Protein, Urine 1+ (Neg); Urobilinogen, Urine NORM (Normal)
[2018-09-01 10:58] LABS: Bacteria Many /hpf; Granular Casts 0-2 /lpf (0); Squamous Epithelial Cells Rare /hpf (Few)
[2018-09-01 19:42] LABS: Influenza A Negative (NEGATIVE); Influenza B Negative (NEGATIVE)
--- NOTE | 2018-09-01 20:14 | NUR ---
SHIFT SUMMARY- PT HAD A GI CONSULT THIS EVENING, GOLYTLY STARTED PER EMAR. PT ALERT AND ORIENTED AND FAMILY IS AT THE BEDSIDE. PT HAS BILATERAL DVTS AND IS ON LOVENOX FOR THIS, SINCE XERALTO WAS STOPPED D/T GI BLEED. PT PLEASENT AND COOPERATIVE WITH CARE. PER FAMILY THEY SPOKE TO GI DOCTOR, IF PT IS UNABLE TO DO THE BOWEL PREP THEY WANT TO DECLINE TREATMENT AND EXPLORE ANOTHER OPTION. PT IS A DNR, BRACLET NOT IN PLACE AT THIS TIME ON SHOULD BE PLACED THIS EVENING, NIGHT RN AWARE. PT HAS NO CURRENT C/O PAIN, MEDICATED ONCE THIS SHIFT FOR PAIN WITH TYLENOL, PAIN IN THE LEFT THIGH, LIKELY R/T DVT.
--- NOTE | 2018-09-02 05:31 | NUR ---
SHIFT SUMMARY [place] [facility] [place] GOLYT[place] AND STOOL BECOMING LIQUID VERY DARK BROWN. UROSTOMY DRAINING. NPO AFTER MIDNIGHT. SHE WAS ABLE TO DOZE ON AND OFF T/O NIGHT. USING CALL LIGHT APPROPRIATELY.
[2018-09-02 05:39] LABS: BASOPHILS ABSOLUTE AUTO 0.09 K/mm3 (0.00-0.23); BASOPHILS PERCENT AUTO 1 % (0-2); EOSINOPHILS ABSOLUTE AUTO 0.68 K/mm3 (0.00-0.68); EOSINOPHILS PERCENT AUTO 4 % (0-6); Hematocrit 27.5 % (33.0-51.0); Hemoglobin 8.4 g/dL (11.5-16.0); IMMATURE GRAN ABSOLUTE AUTO 0.14 K/mm3 (0.00-0.10); IMMATURE GRAN PERCENT AUTO 1 % (0-1); LYMPHOCYTES ABSOLUTE AUTO 1.18 K/mm3 (0.84-5.20); LYMPHOCYTES PERCENT AUTO 6 % (21-46); MONOCYTES ABSOLUTE AUTO 1.21 K/mm3 (0.16-1.47); MONOCYTES PERCENT AUTO 6 % (4-13); Mean Corpuscular HGB 28.2 pg (26.0-34.0); Mean Corpuscular HGB Conc 30.5 g/dL (31.5-36.5); Mean Platelet Volume 9.9 fL (9.1-12.4); NEUTROPHILS ABSOLUTE AUTO 15.62 K/mm3 (1.96-9.15); NEUTROPHILS PERCENT AUTO 83 % (41-73); NRBC ABSOLUTE 0.02 K/mm3 (0.00-0.02); NRBC Auto 0.1 /100 WBC (0.0-0.2); Platelet Count 350 K/mm3 (150-400); RDW Coefficient Variation 16.7 % (11.7-14.2); RDW Standard Deviation 55.4 fL (35.1-46.3); Red Blood Cell Count 2.98 M/mm3 (3.80-5.20); White Blood Cell Count 18.92 K/mm3 (4.00-11.30)
[2018-09-02 05:41] LABS: Mean Corpuscular Volume 92 fL (80-100)
--- NOTE | 2018-09-02 15:55 | NUR ---
09/02/18 1555 Edil Mckeon Patient to ENDO 1History, Chart, Medications and Allergies reviewed before start of procedure.MONITOR INTACT WITH CONTINUOUS PULSE OXIMETRY AND INTERMITTENT BP.O2 VIA N/C INTACT THROUGHOUT SEDATION/PROCEDURE.See Anesthesia record.
--- NOTE | 2018-09-02 17:33 | NUR ---
PT AOX4 AND COOPERATIVE OF ALL CARE. PT STARTED SHIFT NPO FOR LOWER AND UPPER SCOPE. PT WAS A ONE PERSON TRANSFER TO [facility]. PT WAS ABLE TO DRINK MOST OF THE BOWEL PREP, BUT HAD A HARD TIME COMPLETING THE WHOLE JUG. PT WAS ABLE TO HAVE SCOPES DONE AND IS RESTING IN ROOM AT THIS TIME WITH FAMILY AT BEDSIDE. NO DISTRESS AT THIS TIME.
[2018-09-03 05:31] LABS: BASOPHILS ABSOLUTE AUTO 0.04 K/mm3 (0.00-0.23); BASOPHILS PERCENT AUTO 0 % (0-2); EOSINOPHILS PERCENT AUTO 2 % (0-6); Hematocrit 24.8 % (33.0-51.0); Hemoglobin 7.6 g/dL (11.5-16.0); IMMATURE GRAN ABSOLUTE AUTO 0.08 K/mm3 (0.00-0.10); IMMATURE GRAN PERCENT AUTO 1 % (0-1); LYMPHOCYTES ABSOLUTE AUTO 0.96 K/mm3 (0.84-5.20); LYMPHOCYTES PERCENT AUTO 6 % (21-46); MONOCYTES ABSOLUTE AUTO 0.95 K/mm3 (0.16-1.47); MONOCYTES PERCENT AUTO 6 % (4-13); Mean Corpuscular HGB 27.4 pg (26.0-34.0); Mean Corpuscular HGB Conc 30.6 g/dL (31.5-36.5); Mean Corpuscular Volume 90 fL (80-100); Mean Platelet Volume 9.7 fL (9.1-12.4); NEUTROPHILS ABSOLUTE AUTO 14.07 K/mm3 (1.96-9.15); NEUTROPHILS PERCENT AUTO 85 % (41-73); NRBC ABSOLUTE 0.02 K/mm3 (0.00-0.02); NRBC Auto 0.1 /100 WBC (0.0-0.2); Platelet Count 364 K/mm3 (150-400); RDW Coefficient Variation 17.2 % (11.7-14.2); Red Blood Cell Count 2.77 M/mm3 (3.80-5.20)
--- NOTE | 2018-09-03 07:00 | NUR ---
a+o, saline locked, rm air, call light in reach, walking rounds completed with returning day staff, no indication of bleeding
[2018-09-03 15:25] LABS: BASOPHILS ABSOLUTE AUTO 0.07 K/mm3 (0.00-0.23); BASOPHILS PERCENT AUTO 0 % (0-2); EOSINOPHILS PERCENT AUTO 2 % (0-6); Hematocrit 24.3 % (33.0-51.0); Hemoglobin 7.5 g/dL (11.5-16.0); IMMATURE GRAN PERCENT AUTO 1 % (0-1); LYMPHOCYTES ABSOLUTE AUTO 1.17 K/mm3 (0.84-5.20); LYMPHOCYTES PERCENT AUTO 6 % (21-46); MONOCYTES ABSOLUTE AUTO 1.17 K/mm3 (0.16-1.47); MONOCYTES PERCENT AUTO 6 % (4-13); Mean Corpuscular HGB 28.3 pg (26.0-34.0); Mean Corpuscular HGB Conc 30.9 g/dL (31.5-36.5); Mean Corpuscular Volume 92 fL (80-100); Mean Platelet Volume 9.1 fL (9.1-12.4); NEUTROPHILS ABSOLUTE AUTO 15.31 K/mm3 (1.96-9.15); NEUTROPHILS PERCENT AUTO 84 % (41-73); Platelet Count 351 K/mm3 (150-400); RDW Coefficient Variation 17.6 % (11.7-14.2); RDW Standard Deviation 57.1 fL (35.1-46.3); Red Blood Cell Count 2.65 M/mm3 (3.80-5.20); White Blood Cell Count 18.22 K/mm3 (4.00-11.30)
--- NOTE | 2018-09-03 17:41 | NUR ---
PT AOX4 AND COOPERATIVE OF CARE. PT HAS BEE WORKING WELL WITH THERAPY AND UP AND USING WALKER WITH ASSISTANCE. PT IN VERY PLEASANT MOOD AND CALLS APPROPRIATELY. WILL CONTINUE TO MONITOR.
[2018-09-04 05:01] LABS: BASOPHILS ABSOLUTE AUTO 0.05 K/mm3 (0.00-0.23); BASOPHILS PERCENT AUTO 0 % (0-2); EOSINOPHILS ABSOLUTE AUTO 0.41 K/mm3 (0.00-0.68); EOSINOPHILS PERCENT AUTO 2 % (0-6); Hemoglobin 7.6 g/dL (11.5-16.0); IMMATURE GRAN PERCENT AUTO 1 % (0-1); LYMPHOCYTES ABSOLUTE AUTO 1.07 K/mm3 (0.84-5.20); LYMPHOCYTES PERCENT AUTO 6 % (21-46); MONOCYTES ABSOLUTE AUTO 1.11 K/mm3 (0.16-1.47); MONOCYTES PERCENT AUTO 6 % (4-13); Mean Corpuscular HGB 27.7 pg (26.0-34.0); Mean Corpuscular HGB Conc 30.4 g/dL (31.5-36.5); Mean Corpuscular Volume 91 fL (80-100); Mean Platelet Volume 9.7 fL (9.1-12.4); NEUTROPHILS ABSOLUTE AUTO 15.44 K/mm3 (1.96-9.15); NEUTROPHILS PERCENT AUTO 85 % (41-73); Platelet Count 379 K/mm3 (150-400); RDW Coefficient Variation 18.2 % (11.7-14.2); RDW Standard Deviation 57.2 fL (35.1-46.3); Red Blood Cell Count 2.74 M/mm3 (3.80-5.20); White Blood Cell Count 18.18 K/mm3 (4.00-11.30)
--- NOTE | 2018-09-04 05:04 | NUR ---
SHIFT SUMMARY PT ALERT/ORIENTED T/O SHIFT. C/O NAUSEA EARLY ON AND MEDICATED WITH IV ZOFRAN, NO FURTHER C/O'S NAUSEA. PT ALSO HAD SOME C/O LEG PAIN, MEDICATED WITH TYLENOL. PT TO BATHROOM WITH FWW AND SBA. WILL CONTINUE TO MONITOR.
--- NOTE | 2018-09-04 18:10 | NUR ---
SHE HAS 2 DAUGHTERS PRESENT RIGHT NOW INSTEAD OF 1. SHE IS SITTING ON THE SIDE OF THE BED EATING DINNER. APPETITE IS SMALL. NO N/V. TRAMADOL HELPS FOR HER L LEG PAIN. GABAPENTIN ALSO INCREASED TODAY. KNEE TEDS ON BILAT. IV LEAKED THIS AM. 2 ATTEMPTS TO RESTART SL WERE UNSUCCESSFUL. PROTONIX CHANGED TO PO. IV IRON INFUSION DUE IN THE AM. UROSTOMY APPLIANCE CHANGED WITH SHOWER TODAY. SHE HAS LOW ENERGY. DENIES SOB OR CP. CBG'S STABLE. NO BM TODAY.
--- NOTE | 2018-09-05 05:17 | NUR ---
SHIFT SUMMARY PT HAS HAD NO ACUTE EVENTS DURING THE NIGHT, NO CHANGES. WILL CONTINUE TO MONITOR.
[2018-09-05 08:24] LABS: BASOPHILS ABSOLUTE AUTO 0.07 K/mm3 (0.00-0.23); BASOPHILS PERCENT AUTO 0 % (0-2); EOSINOPHILS ABSOLUTE AUTO 0.31 K/mm3 (0.00-0.68); EOSINOPHILS PERCENT AUTO 2 % (0-6); Hematocrit 25.7 % (33.0-51.0); Hemoglobin 7.6 g/dL (11.5-16.0); IMMATURE GRAN ABSOLUTE AUTO 0.11 K/mm3 (0.00-0.10); IMMATURE GRAN PERCENT AUTO 1 % (0-1); LYMPHOCYTES PERCENT AUTO 5 % (21-46); MONOCYTES ABSOLUTE AUTO 1.35 K/mm3 (0.16-1.47); MONOCYTES PERCENT AUTO 7 % (4-13); Mean Corpuscular HGB 27.7 pg (26.0-34.0); Mean Corpuscular HGB Conc 29.6 g/dL (31.5-36.5); Mean Platelet Volume 9.6 fL (9.1-12.4); NEUTROPHILS ABSOLUTE AUTO 17.52 K/mm3 (1.96-9.15); NEUTROPHILS PERCENT AUTO 86 % (41-73); Platelet Count 403 K/mm3 (150-400); RDW Standard Deviation 64.4 fL (35.1-46.3); Red Blood Cell Count 2.74 M/mm3 (3.80-5.20); White Blood Cell Count 20.46 K/mm3 (4.00-11.30)
[2018-09-05 08:37] LABS: Mean Corpuscular Volume 94 fL (80-100)
[2018-09-05 11:49] LABS: IMMATURE RETIC FRACTION 23.7 % (2.3-16.0); RETIC HGB EQUIVALENT 30.9 pg (28.20-36.60); RETICULOCYTE ABSOLUTE 0.1744 M/mm3 (0.0200-0.1100); RETICULOCYTE COUNT PERCENT 6.39 % (0.50-2.50)
--- NOTE | 2018-09-05 17:50 | NUR ---
SHIFT SUMMARY 88 YR OLD FEMALE. ADMITTED FOR BLOOD LOSS ANEMIA. DNR. SHE IS INDEPENDENT TO STANDBY DEPENDING ON HER WEAKNESS. TODAY PHYSICAL THERAPY WORKED WITH HER AND SHE DID WELL. SHE HAS A UROSTOMY AND PACEMAKER. SHE HAS DVT'S BLE - TX W/LOVENOX. HX:CKD, DM2, A FIB, HTN, CVA. PT IS CONSIDERING HOSPICE ON DC. SHE IS ACHS, WITH NO SLIDING SCALE. SHE USES JEANNE HOSE. SHE RUNS TACHY (A FLUTTER), BUT IS NOT MONITORED BY TELEMETRY. REGULAR DIET. ROOM AIR.
--- NOTE | 2018-09-05 20:18 | NUR ---
Attempted visit X2 today. Will leave report for palliative care nurse following this RN
--- NOTE | 2018-09-06 05:30 | NUR ---
NOC SHIFT SUMMARY PT HAS BEEN PLEASANT AND COOPERATIVE WITH CARE. AAOX4. NO ACUTE CHANGES THIS NIGHT NOTED. SHE HAS SLEPT MOST OF THE NIGHT. DID GET UP ONCE TO GO TO RESTROOM, STANDBY ASSIST. TREATED LEG PAIN WITH TYLENOL AND TRAMADOL TO GOOD EFFECT. APPEARS IN NO ACUTE DISTRESS. WILL CONTINUE TO MONITOR.
[2018-09-06 08:21] LABS: BASOPHILS ABSOLUTE AUTO 0.08 K/mm3 (0.00-0.23); BASOPHILS PERCENT AUTO 0 % (0-2); EOSINOPHILS PERCENT AUTO 3 % (0-6); Hematocrit 24.7 % (33.0-51.0); Hemoglobin 7.2 g/dL (11.5-16.0); IMMATURE GRAN ABSOLUTE AUTO 0.12 K/mm3 (0.00-0.10); IMMATURE GRAN PERCENT AUTO 1 % (0-1); LYMPHOCYTES ABSOLUTE AUTO 1.55 K/mm3 (0.84-5.20); LYMPHOCYTES PERCENT AUTO 8 % (21-46); MONOCYTES ABSOLUTE AUTO 1.47 K/mm3 (0.16-1.47); MONOCYTES PERCENT AUTO 8 % (4-13); Mean Corpuscular HGB 27.9 pg (26.0-34.0); Mean Corpuscular HGB Conc 29.1 g/dL (31.5-36.5); Mean Corpuscular Volume 96 fL (80-100); Mean Platelet Volume 9.3 fL (9.1-12.4); NEUTROPHILS ABSOLUTE AUTO 15.52 K/mm3 (1.96-9.15); NEUTROPHILS PERCENT AUTO 80 % (41-73); Platelet Count 413 K/mm3 (150-400); RDW Coefficient Variation 19.4 % (11.7-14.2); RDW Standard Deviation 67.9 fL (35.1-46.3); Red Blood Cell Count 2.58 M/mm3 (3.80-5.20); White Blood Cell Count 19.34 K/mm3 (4.00-11.30)
[2018-09-06 12:36] LABS: Hematocrit 24.4 % (33.0-51.0); Hemoglobin 7.3 g/dL (11.5-16.0)
--- NOTE | 2018-09-06 12:45 | NUR ---
CALLED PT'S HOSPITALIST PT EXPERIENCING BODY TREMORS. BLOOD PRESSURE 82/40. AFEBRILE. A&O X4. DR ORDERED FLUID BOLUS 500 ML, TYPE AND CROSS, STAT H&H LABS. Q 1 HR VS. WE WILL PERFORM RECHECK OF VS FOLLOWING BOLUS. STATES THAT IF S/SX CONTINUE, WE MAY ADMIN 1 UNIT OF BLOOD. IF PT DOES NOT STABILIZE CONDITION, WE MAY CONSIDER IN-HOUSE TRANSFER. ATTEMPTED TO CALL PT'S FAMILY TO UPDATE THEM, LEFT MESSAGE FOR THEM TO RETURN MY CALL.
--- NOTE | 2018-09-06 16:20 | NUR ---
Met with Maria T and her daughter at the bedside. Maria T has been thinking about transitioning to hospice. Allowed Maria T and her daughter to ask questions. Explained hospice services that are available. Maria T and her daughter are interested in hospice services, Maria T has another daughter, Pavithra, who lives locally and helps to take care of her. Maria T would like me to return when Pavithra arrives to continue hospice discussion. Family to contact Pavithra and will page PC RN when she arrives.
--- NOTE | 2018-09-06 17:10 | NUR ---
Maria T's daughter, Pavithra, arrived and hospice discussion continued. Explained hospice program again and answered questions from pt and both daughters. Provided a copy of the hospice pamphlet per Pavithra's request. Maria T is currently receiving a blood transfusion. Family would like to consider hospice as an option and make a decision tomorrow. PC to follow up with pt's family tomorrow to help CM facilitate a safe discharge plan.
--- NOTE | 2018-09-06 17:22 | NUR ---
BLOOD TRANSFUSION BEGAN ON 09/06/18 AT 1722 HRS BY ANJEL CHAIREZ VERIFIED WITH NURSE ROSE HERNANDEZ. VITAL SIGNS CAPTURED IMMEDIATELY BEFORE TRANSFUSION, AND Q 15 MINUTES AFTER BEGAN, THEN Q HR UNTIL TRANSFUSION COMPLETED. PT TOLERATED PROCEDURE WELL. IV DID FAIL MIDWAY THROUGH TRANSFUSION. NURSE ONEYDA CAMEJO STARTED A NEW IV, AND THE TRANSFUSION WAS CONTINUED. GAVE HANDOFF REPORT TO NURSE NOBLES AND THE TRANSFUSION WAS COMPLETED ON HER SHIFT. WAS NOTIFIED BY CHARGE THAT THE TRANSFUSION DOCUMENTATION WAS NOT SAVED CORRECTLY IN THE EMAR.
--- NOTE | 2018-09-06 18:51 | NUR ---
SHIFT SUMMARY 88 YR OLD FEMALE. ADMITTED FOR BLOOD LOSS ANEMIA. DNR. WILL RETURN TO [facility], POTENTIALLY ON HOSPICE. TODAY SHE EXPERIENCED TWO PERIODS OF SLIGHT TO MODERATE TREMORS. HER BP DROPPED TO 81/40. HOSPITALIST WAS CALLED. HOSPITALIST CAME AND ASSESSED PT. ORDERED BLOOD TRANSFUSION. HER IV FAILED TODAY, A NEW ONE WAS PLACED AND BLOOD ADMIN WAS RESTARTED. SHE IS ON A REGULAR DIET. PALLIATIVE CARE IS SETTING UP HOSPICE ARRANGEMENTS.
--- NOTE | 2018-09-06 21:09 | NUR ---
BLOOD TRANSFUSION STARTED AT 1722 BY DAY ANJEL CHAIREZ. TRANSFUSION COMPLETED AT 2106 WITH NO TRANSFUSION REACTIONS.
--- NOTE | 2018-09-06 22:13 | NUR ---
19:22 PATIENT HAD BP OF 103/37; SPOKE TO DR LAMA AND REQUESTED PRN BOLUS PARAMETERS; PER DR INSTRUCTION WE MAY BOLUS THE PATIENT IF HER SBP<90
[2018-09-07 07:59] LABS: Hematocrit 32.7 % (33.0-51.0); Hemoglobin 9.4 g/dL (11.5-16.0)
--- NOTE | 2018-09-07 09:05 | NUR ---
Visited with Maria T and two daughters at bedside shortly after Dr. Abarca had visited with them. They state they are now confused and are unsure of what decision to make re: hospice services. They state Dr. Abarca stated that Maria T has conditions that can be treated and that Maria T isn't ready for hospice yet. Maria T states that she is tired, "My body is tired." Explained to her that she can take all the information she has received, talk with her family and then she can make a decision that works best for her. Explained that if she is unsure of hospice at the time she is discharged, she can always talk with her PCP about hospice services in the future. Allowed Maria T and daughters to ask questions. PC will continue to follow for syptom management and advanced care planning. Nursing medicated pt for discomfort during my visit this morning.
--- NOTE | 2018-09-07 19:39 | NUR ---
PT REPORTS NO BM X 5 DAYS. ABD FIRM, BT PRESENT X4. PRUNE/APPLE JUICE WITH BUTTER GIVEN. PT AND HER FAMILY ARE STILL UNDECIDED ABOUT HOSPICE AND WOULD LIKE TO SEE A CARE CEREAL POPPER TOMORROW PRIOR TO D/C HOME ([facility]). SHE AMBULATED THE HALLS THIS AFTERNOON WITH STEREO COMPILER SBA W/FWW. VSS.
[2018-09-08 07:54] LABS: BASOPHILS ABSOLUTE AUTO 0.11 K/mm3 (0.00-0.23); BASOPHILS PERCENT AUTO 0 % (0-2); EOSINOPHILS ABSOLUTE AUTO 0.35 K/mm3 (0.00-0.68); EOSINOPHILS PERCENT AUTO 1 % (0-6); Hematocrit 31.7 % (33.0-51.0); Hemoglobin 9.4 g/dL (11.5-16.0); IMMATURE GRAN ABSOLUTE AUTO 0.18 K/mm3 (0.00-0.10); IMMATURE GRAN PERCENT AUTO 1 % (0-1); LYMPHOCYTES ABSOLUTE AUTO 1.55 K/mm3 (0.84-5.20); LYMPHOCYTES PERCENT AUTO 6 % (21-46); MONOCYTES PERCENT AUTO 7 % (4-13); Mean Corpuscular HGB 27.6 pg (26.0-34.0); Mean Corpuscular HGB Conc 29.7 g/dL (31.5-36.5); Mean Platelet Volume 9.3 fL (9.1-12.4); NEUTROPHILS PERCENT AUTO 85 % (41-73); Platelet Count 470 K/mm3 (150-400); RDW Coefficient Variation 20.8 % (11.7-14.2); RDW Standard Deviation 68.3 fL (35.1-46.3); White Blood Cell Count 25.89 K/mm3 (4.00-11.30)
[2018-09-08 07:55] LABS: Mean Corpuscular Volume 93 fL (80-100)
[2018-09-08] MEDS ORDERED: TRAM50 PO (15:23)
--- NOTE | 2018-09-08 19:03 | NUR ---
SHIFT SUMMARY: NO ACUTE CHANGES NOTED THIS SHIFT. UROSTOMY IS PATENT AND DRAINING. DENIES SOB. D/C HOME DELAYED BY [facility] D/T CHANGE IN PT STATUS. PLAN IS FOR HER TO D/C TOMORROW. D/C ORDERS WERE FAXED TO [facility] AT [facility] [phone] PER HER REQUEST AND PT APPROVAL.
--- NOTE | 2018-09-09 05:26 | NUR ---
SHIFT SUMMARY: NO ACUTE CHANGES TONIGHT. PT IS TO D/C HOME TODAY ON HOME HEALTH c OPTION TO TRANSFER TO HOSPICE, PT DOES NOT WANT ANY FURTHER MEDICAL CARE OR GI WORK UP FOR BLOOD LOSS, ADMITTING DIAGNOSIS. PT IS KIND AND COOPERATIVE c CARE. ADMINISTERED SCHEDULED TRAMADOL PER ORDERS. PT IS NOT HAVING ACUTE PAIN, BUT STILL ADMINISTERED TO PREVENT PAIN FROM ARISING. PT IS IN AGREEMENT c THIS. WILL CONT TO MONITOR AND PROVIDE CARE UNTIL PRESUMED BY ONCOMING RN.
--- NOTE | 2018-09-09 10:02 | NUR ---
DR VALDOVINOS IN TO SEE PT. PER DR VALDOVINOS PT CAN D/C BACK TO [facility], SPOKE WITH NURSE AT [facility] WHO SAID OK TO DISHCARGE BACK.
--- NOTE | 2018-09-09 12:28 | NUR ---
[facility].
--- NOTE | 2018-09-09 13:02 | NUR ---
DISCHARGE INSTRUCTIONS REVIEWED WITH PT AND DAUGHTER. SCRIPT GIVEN FOR TRAMADOL AND REPEAT LAB DRAWS. IV DC'D INTACT BY YAYA STUDENT. PT AWAITING SCRIPT FOR HOSPITAL BED. CONFIRMED WITH [facility] TO [facility]CHARGE BACK, D/C ORDERS FAXED 09/08.
--- NOTE | 2018-09-09 13:32 | NUR ---
PT D/C'D BACK TO [facility], ESCORTED OUT VIA W/C TO D/C WITH DAUGHTER. SCRIPT GIVEN FOR HOSPITAL BED. DC'D AT 1330.
== END 2018-09-09 13:28 | disposition home health service (06) | DRG 378 ==
LOC: ER 20:29 → MEDS 23:55 → EDPENDDIS 09-09 08:25 → ENPENDDIS 09-09 08:25 → MEDS 09-09 13:28
PROVIDERS: Emergency Medicine; Hospitalist; Nurse Practitioner Acute Care; Student in an Organized Health Care Education/Training Program; ADMIT Internal Medicine
PROC: 30233N1 Transfusion of Nonautologous Red Blood Cells into Peripheral Vein, Percutaneous Approach (ICD-10-PCS; principal; 2018-09-01)
PROC: 0DJD8ZZ Inspection of Lower Intestinal Tract, Via Natural or Artificial Opening Endoscopic (ICD-10-PCS; 2018-09-02)
PROC: 0DJ08ZZ Inspection of Upper Intestinal Tract, Via Natural or Artificial Opening Endoscopic (ICD-10-PCS; 2018-09-02 15:00)
DX: K92.2 Gastrointestinal hemorrhage, unspecified (principal); D62 Acute posthemorrhagic anemia; I12.9 Hypertensive chronic kidney disease with stage 1 through stage 4 chronic kidney disease, or unspecified chronic kidney disease; E11.22 Type 2 diabetes mellitus with diabetic chronic kidney disease; E78.5 Hyperlipidemia, unspecified; Z85.51 Personal history of malignant neoplasm of bladder; Z87.891 Personal history of nicotine dependence; Z95.0 Presence of cardiac pacemaker; M81.0 Age-related osteoporosis without current pathological fracture; I65.29 Occlusion and stenosis of unspecified carotid artery; Z79.82 Long term (current) use of aspirin; D50.9 Iron deficiency anemia, unspecified; I48.2 Chronic atrial fibrillation; E11.649 Type 2 diabetes mellitus with hypoglycemia without coma; K64.8 Other hemorrhoids; M79.2 Neuralgia and neuritis, unspecified; I48.0 Paroxysmal atrial fibrillation; N18.3 Chronic kidney disease, stage 3 (moderate)
CPT/HCPCS: 36415; 36416; 36430; 71046; 78582; 80053; 81001; 82947; 83880; 84484; 85014; 85018; 85025; 85027; 85045; 85610; 85730; 86850; 86870; 86900; 86901; 86902; 86922; 87086; 87804; 93005; 93010; 96374; 97110; 97116; 97161; 97165; 97530; 97535; 99285-25; A9540; A9558; C9113; J1650; J2405; J2704; J2916; J7040; J7050; J7120; P9016

== ENCOUNTER 2018-09-16 14:32 | Emergency (ER) | payer MEDICARE, OTHER ==
[~2018-09-16] VITALS: Ht 165.1 cm; Wt 55.8 kg
[~2018-09-16 14:32] MED LIST changes: +TRAM50 PO
[2018-09-16 15:35] LABS: BASOPHILS ABSOLUTE AUTO 0.11 K/mm3 (0.00-0.23); BASOPHILS PERCENT AUTO 0 % (0-2); EOSINOPHILS ABSOLUTE AUTO 0.16 K/mm3 (0.00-0.68); EOSINOPHILS PERCENT AUTO 1 % (0-6); Hematocrit 29.3 % (33.0-51.0); Hemoglobin 8.7 g/dL (11.5-16.0); IMMATURE GRAN ABSOLUTE AUTO 0.36 K/mm3 (0.00-0.10); IMMATURE GRAN PERCENT AUTO 1 % (0-1); LYMPHOCYTES ABSOLUTE AUTO 1.73 K/mm3 (0.84-5.20); LYMPHOCYTES PERCENT AUTO 5 % (21-46); MONOCYTES ABSOLUTE AUTO 1.37 K/mm3 (0.16-1.47); MONOCYTES PERCENT AUTO 4 % (4-13); Mean Corpuscular HGB 28.1 pg (26.0-34.0); Mean Corpuscular HGB Conc 29.7 g/dL (31.5-36.5); Mean Corpuscular Volume 95 fL (80-100); Mean Platelet Volume 9.8 fL (9.1-12.4); NEUTROPHILS ABSOLUTE AUTO 29.32 K/mm3 (1.96-9.15); NEUTROPHILS PERCENT AUTO 89 % (41-73); NRBC ABSOLUTE 0.07 K/mm3 (0.00-0.02); NRBC Auto 0.2 /100 WBC (0.0-0.2); Platelet Count 592 K/mm3 (150-400); RDW Coefficient Variation 21.3 % (11.7-14.2); RDW Standard Deviation 69.5 fL (35.1-46.3); White Blood Cell Count 33.05 K/mm3 (4.00-11.30)
[2018-09-16 15:45] LABS: Albumin, Blood 1.8 g/dL (3.4-5.0); Albumin/Globulin Ratio 0.4 (0.8-1.8); Bilirubin, Total 0.5 mg/dL (0.1-1.0); Bun/Creatinine Ratio 26.1 (12.0-20.0); Calcium, Blood 8.1 mg/dL (8.5-10.1); Creatinine, Blood 1.88 mg/dL (0.40-1.00); Globulin, Blood 4.5 g/dL (2.2-4.0); Potassium, Blood 4.4 mmol/L (3.5-5.5); Total Protein, Blood 6.3 g/dL (6.4-8.2)
[2018-09-16 16:48] LABS: Source, Urine Clean Catch
[2018-09-16 16:58] LABS: Bilirubin, Urine Neg (Neg); Blood, Urine 1+ (Neg); Glucose Qualitative, Urine Neg (Neg); Ketones, Urine Neg (Neg); Leukocyte Esterase, Urine 3+ (Neg); Nitrite, Urine Neg (Neg); Protein, Urine Neg (Neg); Urobilinogen, Urine NORM (Normal); pH, Urine 6.5 (5.0-8.0)
[2018-09-16 17:11] LABS: Appearance, Urine Hazy (Clear); Color, Urine Pale Yellow (P-Yellow)
[2018-09-16 17:16] LABS: Amorphous Light (0-Heavy); Bacteria Mod /hpf; Mucus Light (0-Heavy); Red Blood Cells, Urine 0-2 /hpf (0-2); Squamous Epithelial Cells Rare /hpf (Few)
--- NOTE | 2018-09-16 17:35 | NUR ---
Spoke with Dr Soliz and he reports Pt may benefit from a palliative care visit regarding goals of care. Pt is A&Ox4 and denies pain at this time. Pt also denies dyspnea, nausea, and anxiety. Pt has daughters Olivia and Lupis present during visit. Pt gives verbal permission to have discussion with daughters present. Engaged in therapeutic conversation regarding goals of care. Pt reports that she still wants to continue with blood transfusions as needed. She reports that she does not want any invasive procedures such as sugery. Discussed current POLST on file and Pt reports wishes are still the same. POLST reads DNR, limited treatment, and no tube feeding. Discussed options for hospice, Pt and family reports they are aware of this option. Family report they would like Pt to receive home health and transition to hospice at a later time. Family also expresses interest in Pt receiving blood transfusions at the [facility]. Encouraged Pt and family to have these discussions with Pt's PCP. Pt and family express appreciation of visit and report no other concerns. Pt may qualify for hospice due to her chronic kidney disease and recurring GI bleed, and continued decline in ADLs. Would need to be willing to D/C blood transfusions though. Will remain available
== END 2018-09-16 18:14 | disposition home or self-care (01) ==
LOC: ER 14:32
PROVIDERS: Emergency Medicine; Physician Assistant
DX: D50.0 Iron deficiency anemia secondary to blood loss (chronic) (principal); D72.829 Elevated white blood cell count, unspecified; N39.0 Urinary tract infection, site not specified; I12.9 Hypertensive chronic kidney disease with stage 1 through stage 4 chronic kidney disease, or unspecified chronic kidney disease; E11.22 Type 2 diabetes mellitus with diabetic chronic kidney disease; N18.3 Chronic kidney disease, stage 3 (moderate); Z79.899 Other long term (current) drug therapy; Z79.891 Long term (current) use of opiate analgesic
CPT/HCPCS: 80053; 81001; 85025; 86850; 86900; 86901; 86902; 86920; 87086; 93005; 93010; 99283-25